=== PATIENT | female | born 1985 | race Caucasian/White ===

== ENCOUNTER 2017-05-17 07:32 | Day surgery (SDC) | payer BC ==
[~2017-05-17 07:32] MED LIST: ACETAMINOPHEN 1,000 MG/100 ML BTL IV ONE; CEFAZOLIN 2 Gram 2 GM/50 ML BAG IVPB ONE
[2017-05-17] MEDS ORDERED: ONDANSETRON HCL IV 4 MG/2 ML VIAL IVP ONE (07:33)
[2017-05-17] MEDS ORDERED: BUPIVACAINE 0.5% W/EPI MPF 30 ML VIAL IVP ONE (07:33)
[2017-05-17] MEDS ORDERED: FENTANYL PF 100MCG/2ML VIAL IV ONE (07:33)
[2017-05-17] MEDS ORDERED: PROPOFOL 10 MG/ML VIAL IV ONE (07:33)
[2017-05-17] MEDS ORDERED: METHYLPREDNISOLONE 40MG/VIAL IM ONE (07:33)
[2017-05-17] MEDS ORDERED: MORPHINE SULFATE 5 MG/ML PFS IVP ONE (07:33)
[2017-05-17] MEDS ORDERED: LIDOCAINE 2% MDV (20MG/ML) 20ML VIAL IV ONE (07:33)
[2017-05-17] MEDS ORDERED: SEVOFLURANE 250 ML INH ONE (07:33)
[2017-05-17] MEDS ORDERED: KETOROLAC 30 MG/ML VIAL IVP ONE (07:33)
[2017-05-17] MEDS ORDERED: MIDAZOLAM HCL 2MG/2ML VIAL IV ONE (07:33)
--- NOTE | 2017-05-18 10:31 | Operative Note ---
DATE: 05/17/2017 PREOPERATIVE DIAGNOSIS: INTERNAL DERANGEMENT OF THE RIGHT KNEE. POSTOPERATIVE DIAGNOSES: 1. LARGE CHONDRAL LESION, MEDIAL FEMORAL CONDYLE. 2. LATERAL TRACKING OF THE PATELLA. PROCEDURE: RIGHT KNEE ARTHROSCOPY WITH CHONDROPLASTY OF THE MEDIAL FEMORAL CONDYLE. STAFF SURGEON: CHIVO SHARMA M.D. ANESTHESIA: GENERAL. PREPARATION: CHLORAPREP. INDIVIDUAL CONSIDERATIONS: NONE. PROCEDURE: The patient was taken to the Operating Room and placed supine on the operating table. She had a successful induction of a general anesthetic. Her right lower extremity was prepped and draped in the usual fashion. The patient had superolateral inflow cannula placed. The skin was infiltrated with 0.5% Marcaine with Epinephrine prior. The knee was then inflated with normal saline. An inferior medial and inferior lateral portal were made in a similar fashion. The arthroscope was introduced through the inferior lateral portal up to the pouch. The patellofemoral joint was normal although there was a fairly impressive lateral tracking and would overhang laterally. No chondromalacia was seen. No significant synovitis. The medial gutter and lateral gutter were normal. Medially, it looked normal but on further probing she had a large unstable split chondral lesion of the medial femoral condyle just lateral to the midline and centered about 45 degrees, about the size of a quarter with cartilage basically peeling off. Luckily, there was a knot down to bone and I was able to just get the unstable layers off. The medial meniscus and two collats were normal in the notch. The cruciates were normal and lateral compartment structures were normal. The knee was then irrigated out with saline to remove loose floating debris. Portals were closed with ginny and 20 mL of 0.50% Marcaine with Epinephrine along with 5 mg of Morphine and 40 mg DepoMedrol were all injected into the knee and a sterile Bulkee compressive dressing was applied. The patient tolerated the procedures well. Needle and sponge counts were correct. Estimated blood loss was minimal and she was taken back to Recovery in good condition. There were no complications. JOB NUMBER: [id number] MTDD
== END 2017-05-17 10:30 | disposition home or self-care (01) ==
LOC: SUR 07:32
PROVIDERS: ATTEND Orthopaedic Surgery
DX: M24.10 Other articular cartilage disorders, unspecified site (principal); M22.11 Recurrent subluxation of patella, right knee
CPT/HCPCS: 29877; 01400; 81025; J1885; J2405; J3010; J0690; J2270; J1030